=== PATIENT | female | born 1950 | race African-American/Black ===

== ENCOUNTER 2024-05-09 07:06 | Inpatient (IN) | payer OTHER ==
[~2024-05-09] VITALS: Ht 165.1 cm; Wt 44.4 kg
--- NOTE | 2024-05-09 07:24 | ECG ---
[facility] Test Date: 2024-05-09 Test Time: 07:13:26 Pat Name: FAITH BURTON Department: ER Room: 0220T Gender: F Commercial Real Estate Appraiser: CHRIS : 1950 Requested By: CEM GREEN Order Number: [id number] Reading MD: Geraldo Rao Measurements Intervals [place] Rate: 84 P: 80 OR: 162 QRS: 76 QRSD: 90 T: 66 QT: 377 QTc: 446 Interpretive Statements Sinus rhythm Minimal ST elevation, inferior leads Electronically Signed On 05-14-2024 16:06:57 PST by Geraldo Rao Please click the below link to view image of tracing.
[2024-05-09 07:44] VITALS: PULSE 88; O2SAT 98
--- NOTE | 2024-05-09 08:15 | ED.PDOC ---
History of Present Illness HPI Comments A 74 year old female brought in by EMS presents to the ED with a chief complaint of generalized body pain onset yesterday around 20:00. Daughter states the patient has Sickle Cell Anemia, does not see a Specialist and was seen in this ED about 1 week ago, was transferred to [place]. Patient is currently ex periencing generalized body pain as well as nausea, vomiting. Patient took Motrin, Theraflu and [place] but has not improved symptoms. No other symptoms or modifying factor present at this time. 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 Family History Family History: Unknown Social History Smoker: Non-Smoker Alcohol: Denies ETOH Use Drugs: Marijuana Lives In: Home Constitutional: denies: chills, diaphoresis, fatigue, fever, malaise, sweats, weakness, others EENTM: denies: blurred vision, double vision, ear bleeding, ear discharge, ear drainage, ear pain, ear ringing, eye pain, eye redness, hearing loss, mouth pain, mouth swelling, nasal discharge, nose bleeding, nose congestion, nose pain, photophobia, tearing, throat pain, throat swelling, voice changes, others Respiratory: denies: cough, hemoptysis, orthopnea, SOB at rest, shortness of breath, SOB with excertion, stridor, wheezing, others Cardiovascular: denies: chest pain, dizzy spells, diaphoresis, Dyspnea on exertion, edema, irregular heart beat, left arm pain, lightheadedness, palpitations, PND, syncope, others Gastrointestinal: reports: nausea, vomiting; denies: abdomen distended, abdominal pain, blood streaked bowels, constipated, diarrhea, dysphagia, difficulty swallowing, hematemesis, melena, poor appetite, poor fluid intake, rectal bleeding, rectal pain, others Genitourinary: denies: abnormal vagina bleeding, burning, dyspareunia, dysuria, flank pain, frequency, hematuria, incontinence, pain, , vagina discharge, urgency, others Neurological: denies: dizziness, fainting, headache, left sided numbness, left sided weakness, numbness, paresthesia, pre-existing deficit, right sided numbness, right sided weakness, seizure, speech problems, tingling, tremors, weakness, others Musculoskeletal: reports: others (generalized body pain); denies: back pain, gout, joint pain, joint swelling, muscle pain, muscle stiffness, neck pain Integumetry: denies: bruises, change in color, change in hair/nails, dryness, laceration, lesions, lumps, rash, wounds, others Allergic/Immunocompromised: denies: Difficulty Healing, Frequent Infections, Hives, Itching, others Hematologic/Lymphatic: denies: anemia, blood clots, easy bleeding, easy bruising, swollen glands, others Endocrine: denies: excessive hunger, excessive sweating, excessive thirst, excessive urination, flushing, intolerance to cold, intolerance to heat, unexplained weight gain, unexplained weight loss, others Psychiatric: denies: anxiety, bipolar disorder, depression, hopeless, panic disorder, schizophrenia, sleepless, suicidal, others All Other Systems: Reviewed and Negative Physical Exam General Appearance: Mild Distress, Normal, Other (uncomfortable) HEENT: Normal ENT Inspection, Pharynx Normal, TMs Normal Neck: Full Range of Motion, Non-Tender, Normal, Normal Inspection Respiratory: Chest Non-Tender, Lungs Clear, No Accessory Muscle Use, No Respiratory Distress, Normal Breath Sounds Cardiovascular: No Edema, No JVD, No Murmur, No Gallop, Normal Peripheral Pu lses, Regular Rate/Rhythm Breast Exam: Deferred Gastrointestinal: No Organomegaly, Non Tender, No Pulsatile Mass, Normal Bowel Sounds, Soft Genitalia: Deferred Pelvic: Deferred Rectal: Deferred Extremities: No calf tenderness, Normal capillary refill, Normal inspection, Normal range of motion, Non-tender, No pedal edema Musculoskeletal : Apperance: Normal Neurologic: Alert, historical records administrator II-XII nml as Tested, No Motor Deficits, Normal Affect, Normal Mood, No Sensory Deficits Cerebellar Function: Normal Reflexes: Normal Skin: Dry, Normal Color, Warm Lymphatic: No Adenopathy Was a procedure done? Was a procedure done?: No Differential Dx Considerations may include: Sickle cell crisis, acute chest, pneumonia X-Ray, Labs, Meds, VS Vital Signs Date Time Temp Pulse Resp B/P (MAP) Pulse Ox O2 Delivery O2 Flow Rate FiO2 05/09/24 08:54 87 16 128/56 05/09/24 08:24 90 18 128/56 05/09/24 08:00 88 16 128/56 (80) 100 05/09/24 07:44 88 18 147/87 (107) 98 05/09/24 07:44 88 98 Room Air* 0 21 05/09/24 07:38 98.8 84 22 155/76 (102) 98 05/09/24 07:13 84 Lab Test 05/09/24 10:03 05/09/24 08:31 05/09/24 07:13 Range/Units Troponin I High Sensitivity 35 *H 37 *H 35 *H </=34 ng/L White Blood Count 10.5 4.4-10.8 10^3/uL Red Blood Count 1.45 L 4.0-5.20 10^6/uL Hemoglobin 5.0 *L 12.2-16.2 g/dL Hematocrit 15.0 L 36.0-46.0 % Mean Corpuscular Volume 103.4 H 80.0-100.0 fL Mean Corpuscular Hemoglobin 34.1 H 28.0-32.0 pg Mean Corpuscular Hemoglobin Concent 33.0 32.0-36.0 g/dL Red Cell Distribution Width 17.2 H 11.8-14.3 % Platelet Count 129 L 140-450 10^3/uL Mean Platelet Volume 11.2 H 6.9-10.8 fL Neutrophils (%) (Auto) 37.0-80.0 % Lymphocytes (%) (Auto) 10.0-50.0 % Monocytes (%) (Auto) 0.0-12.0 % Basophils (%) (Auto) 0.0-2.0 % Neutrophils # (Auto) 1.6-8.6 10 ^3/uL Lymphocytes # (Auto) 0.4-5.4 10 ^3/uL Monocytes # (Auto) 0-1.3 10 ^3/uL Differential Total Cells Counted 100.0 100 Neutrophils % (Manual) 72 37.0-80.0 Band Neutrophils % (Manual) 0 Lymphocytes % (Manual) 21 10.0-50.0 Monocytes % (Manual) 6 0-12 Eosinophils % (Manual) 1 0-7 Basophils % (Manual) 0 0.0-2.0 Metamyelocytes % (manual) 0 Myelocytes % (Manual) 0 Promyelocytes % (Manual) 0 Blast Cells % (Manual) 0 Nucleated Red Blood Cells 5.0 % Reactive Lymphocytes 0 Platelet Estimate Decrea Large Platelets Few Anisocytosis (manual) Slight Macrocytosis Slight Ayala Cells Few Reticulocyte Count (auto) 11.22 H 0.5-1.5 % Sodium Level 131 L 136-145 mmol/L Potassium Level 4.0 3.5-5.1 mmol/L Chloride Level 102 98-107 mmol/L Carbon Dioxide Level 17 L 20-31 mmol/L Anion Gap 12 5-15 Blood Urea Nitrogen 26 H 9-23 mg/dL Creatinine 1.28 H 0.550-1.02 mg/dL Glomerular Filtration Rate Calc 44 >90 mL/min BUN/Creatinine Ratio 20.3 H 10.0-20.0 Serum Glucose 120 H 74-106 mg/dL Calcium Level 10.8 H 8.7-10.4 mg/dL Current Medications Medications (Trade) Dose Ordered Sig/Evelyn Route Start Time Stop Time Status Last Admin Sodium Chloride 1,000 ml @ 1,000 mls/hr Q1H ONCE IV 05/09/24 08:15 05/09/24 09:14 DC 05/09/24 08:22 Ondansetron HCl (Zofran) 4 mg ONCE ONCE IV 05/09/24 08:15 05/09/24 08:16 DC 05/09/24 08:23 Morphine Sulfate 4 mg ONCE ONCE IV 05/09/24 08:15 05/09/24 08:16 DC 05/09/24 08:24 Diphenhydramine HCl (Benadryl Injection) 25 mg ONCE ONCE IV 05/09/24 08:15 05/09/24 08:16 DC 05/09/24 08:[address] [address] Ph: [phone] DIAGNOSTIC IMAGING Diagnostic Imaging Report : [id number] Signed PATIENT: FAITH BURTON ACCT: [id number] UNIT: [id number] : 1950 LOC: ER ROOM / BED: / AGE / SEX: 74 / F ADM STATUS: REG ER SERVICE 8 ORDERING PHYSICIAN: CEM BLACK MD PROCEDURE(s): CXRP - CHEST PORTABLE REASON: chest pain, hx of sickle cell ORDER NUMBER(s): [id number], ACCESSION NUMBER(s): [id number] XY CHEST PORTABLE, HISTORY: chest pain, hx of sickle cell COMPARISON: None None TECHNICAL DATA: 1 view of the chest was obtained. FINDINGS: Lines and tubes: None Cardiomediastinal silhouette: normal Pulmonary vasculature: prominent Lung expansion: normal Lung airspace: normal Lung interstitium: normal Pleura: normal Pneumothorax: no Bones: Unremarkable Other: no IMPRESSION: Mild pulmonary congestion. ATED BY: ABIODUN SOSA MD DICTATED DATE/TIME: 05/09/24840 SIGNED BY: ABIODUN SOSA MD SIGNED DATE/TIME: 05/09/24840 CC: Time of 1ST Reevaluation: 08:34 Reevaluation 1ST: Unchanged Patient Education/Counseling: Diagnosis, Treatment, Prognosis Family Education/Counseling: Diagnosis, Treatment, Prognosis Additional Information HI DATA VOL/COMPLEXITY:>2 Ordered Test- LAB, PHA, XY, EKG Reviewed Results: Reticulocyte count, BMP, CBC, TROP, TROP, TROP, Manual DIfferential Independent Hx- yes Interpreted Results-(XY/EKG) Discuss Tx/Results- medical personnel, pt, daughter Departure 1 Departure Time of Disposition: 11:03 (Patient likely with sickle cell crisis given the symptomatic anemia however patient is making a good retake count. We will transfuse patient give analgesia, fluids, oxygen and admit patient for further workup) Impression: Primary Impression: Symptomatic anemia Additional Impression: Sickle cell crisis Disposition: ADMITTED INPATIENT Admit to: Med Surg Condition: Serious Critical Care Note Critical Care Time?: Yes Critical care comment: Acute Severe chest pain Authorized and Performed by: Cem Black MD Total critical care time: Approximately 31 minutes Due to a high probability of clinically significant, life threatening deterioration, the patient required my highest level of preparedness to intervene emergently and I personally spent this critical care time directly and personally managing the patient. This critical care time included obtaining a history; examining the patient; pulse oximetry; ordering and review of studies; arranging urgent treatment with development of a management plan; evaluation of patient's response to treatment; frequent reassessment; and, discussions with other providers. This critical care time was performed to assess and manage the high probability of imminent, life-threatening deterioration that could result in multi-organ failure. It was exclusive of separately billable procedures and treating other patients and teaching time. Please see my other sections and the rest of the note for further information on patient assessment and treatment. Stability Stability form required: No I personally scribed for CEM BLACK MD ([email or web address]) on 05/09/24 at 08:15. Electronically submitted by Radha Betancourt ([email or web address]). I personally scribed for CEM BLACK MD ([email or web address]) on 05/09/24 at 09:09. Electronically submitted by Radha Betancourt ([email or web address]). I personally scribed for CEM BLACK MD ([email or web address]) on 05/09/24 at 10:40. Electronically submitted by Radha Betancourt ([email or web address]). CEM BLACK MD May 09, 2024 08:15
[2024-05-09] MEDS: SODIUM CHLORIDE 0.9% 1,000 ML IV ONE (08:22)
[2024-05-09] MEDS: diphenhdrAMINE HCL 50 MG/1 ML VL IV ONE (08:23)
[2024-05-09] MEDS: ONDANSETRON HCL 4 MG/2 ML VIAL IV ONE (08:23)
[2024-05-09 08:24] LABS: Red Blood Cells 1.45 10^6/uL (4.0-5.20)
[2024-05-09] MEDS: MORPHINE SULFATE 4 MG/ML SYR/VIAL IV ONE ×2 (08:24→11:03)
[2024-05-09 08:26] LABS: Mean Corpuscular Hemoglobin 34.1 pg (28.0-32.0); Mean Corpuscular Volume 103.4 fL (80.0-100.0); Platelet Count (auto) 129 10^3/uL (140-450); Red Cell Distribution Width 17.2 % (11.8-14.3); White Blood Cell 10.5 10^3/uL (4.4-10.8)
[2024-05-09 08:35] LABS: Chloride 102 mmol/L (98-107)
[2024-05-09 08:36] LABS: Anion Gap 12 (5-15)
[2024-05-09 08:37] LABS: Calcium 10.8 mg/dL (8.7-10.4); Carbon Dioxide 17 mmol/L (20-31); Sodium 131 mmol/L (136-145)
[2024-05-09 08:40] LABS: Band Neutrophils % (manual) 0; Basophils % (manual) 0 (0.0-2.0); Blast Cells 0; Metamyelocytes % 0; Myelocytes % 0; Promyelocytes % 0; Reactive Lymphocytes 0
[2024-05-09 08:41] LABS: BUN/Creatinine Ratio 20.3 (10.0-20.0)
[2024-05-09 08:42] LABS: Blood Urea Nitrogen 26 mg/dL (9-23); Glucose 120 mg/dL (74-106)
--- NOTE | 2024-05-09 08:44 | DVH ---
XY CHEST PORTABLE, HISTORY: chest pain, hx of sickle cell COMPARISON: None None TECHNICAL DATA: 1 view of the chest was obtained. FINDINGS: Lines and tubes: None Cardiomediastinal silhouette: normal Pulmonary vasculature: prominent Lung expansion: normal Lung airspace: normal Lung interstitium: normal Pleura: normal Pneumothorax: no Bones: Unremarkable Other: no IMPRESSION: Mild pulmonary congestion.
[2024-05-09 09:05] LABS: Eosinophils % (manual) 1 (0-7); Lymphocytes % (manual) 21 (10.0-50.0); Monocytes % (manual) 6 (0-12)
[2024-05-09 09:06] LABS: Large Platelets FEW; Platelet Estimate Decrea
[2024-05-09 09:07] LABS: Anisocytosis Slight
[2024-05-09 09:08] LABS: Macrocytosis Slight
[2024-05-09] MEDS: hydroxyUREA 500 MG CAP PO ONE (13:00)
[2024-05-09] MEDS: FOLIC ACID 1 MG in D5W 5% 50 ML INJ ONE (13:00)
[2024-05-09] MEDS ORDERED: ONDANSETRON HCL 4 MG/2 ML VIAL IV PRN (13:00)
--- NOTE | 2024-05-09 13:19 | DVHHP2 ---
History of Present Illness History of Present Illness A 74 year old female with past medical history of sickle cell anemia, gallstones brought in by EMS presents to the ED with a chief complaint of generalized body pain onset yesterday around 20:00. Daughter states the patient has Sickle Cell Anemia, does not see a Specialist and was seen in this ED about 1 week ago, was transferred to [facility] where , per daughter, she apparently received on diversion from cholecystic duct to small-bowel and her gallbladder was inoperable (we will need records to confirm). Patient is currently experien cing generalized body pain as well as nausea, vomiting. She is feeling mild shortness of breath and diffuse chest pain with inspiration, pleuritic pains. Patient took Motrin, Theraflu and [place] but has not improved symptoms. No other symptoms or modifying factor present at this time. Review of Systems Review of Systems Has HPI Allergies: Coded Allergies: Penicillins (Verified Allergy, Unknown, 05/09/24) Sulfa Antibiotics (Verified Allergy, Unknown, 05/09/24) Exam Vital Signs Vital Signs Date Time Temp Pulse Resp B/P (MAP) Pulse Ox O2 Delivery O2 Flow Rate FiO2 05/09/24 11:33 88 16 170/85 05/09/24 10:00 99 05/09/24 07:44 Room Air* 0 21 05/09/24 07:38 98.8 Exam GEN: Healthy appearing, well-developed, under mild distress HEENT: NC/AT; MMM. Scleral icterus CV: RRR, no m/r/g. LUNGS: Bibasilar rales ABD: Soft, NT/ND, NBS, no masses or organomegaly. Nor organomegaly EXT: skin Warm, well perfused. no rashes. No clubbing, cyanosis, or edema. Skin is mildly jaundiced NEURO: Ambulating with no limitations. No focal deficits. Labs/Xrays Labs Test 05/09/24 10:03 05/09/24 07:13 Range/Units Troponin I High Sensitivity 35 *H </=34 ng/L White Blood Count 10.5 4.4-10.8 10^3/uL Red Blood Count 1.45 L 4.0-5.20 10^6/uL Hemoglobin 5.0 *L 12.2-16.2 g/dL Hematocrit 15.0 L 36.0-46.0 % Mean Corpuscular Volume 103.4 H 80.0-100.0 fL Mean Corpuscular Hemoglobin 34.1 H 28.0-32.0 pg Mean Corpuscular Hemoglobin Concent 33.0 32.0-36.0 g/dL Red Cell Distribution Width 17.2 H 11.8-14.3 % Platelet Count 129 L 140-450 10^3/uL Mean Platelet Volume 11.2 H 6.9-10.8 fL Neutrophils (%) (Auto) 37.0-80.0 % Lymphocytes (%) (Auto) 10.0-50.0 % Monocytes (%) (Auto) 0.0-12.0 % Basophils (%) (Auto) 0.0-2.0 % Neutrophils # (Auto) 1.6-8.6 10 ^3/uL Lymphocytes # (Auto) 0.4-5.4 10 ^3/uL Monocytes # (Auto) 0-1.3 10 ^3/uL Differential Total Cells Counted 100.0 100 Neutrophils % (Manual) 72 37.0-80.0 Band Neutrophils % (Manual) 0 Lymphocytes % (Manual) 21 10.0-50.0 Monocytes % (Manual) 6 0-12 Eosinophils % (Manual) 1 0-7 Basophils % (Manual) 0 0.0-2.0 Metamyelocytes % (manual) 0 Myelocytes % (Manual) 0 Promyelocytes % (Manual) 0 Blast Cells % (Manual) 0 Nucleated Red Blood Cells 5.0 % Reactive Lymphocytes 0 Platelet Estimate Decrea Large Platelets Few Anisocytosis (manual) Slight Macrocytosis Slight Ayala Cells Few Reticulocyte Count (auto) 11.22 H 0.5-1.5 % Sodium Level 131 L 136-145 mmol/L Potassium Level 4.0 3.5-5.1 mmol/L Chloride Level 102 98-107 mmol/L Carbon Dioxide Level 17 L 20-31 mmol/L Anion Gap 12 5-15 Blood Urea Nitrogen 26 H 9-23 mg/dL Creatinine 1.28 H 0.550-1.02 mg/dL Glomerular Filtration Rate Calc 44 >90 mL/min BUN/Creatinine Ratio 20.3 H 10.0-20.0 Serum Glucose 120 H 74-106 mg/dL Calcium Level 10.8 H 8.7-10.4 mg/dL Assessment/Plan Assessment/Plan #Sickle cell anemia #Jaundice #Hypoxemia/acute hypoxic respiratory failure #Generalized pains #Pleuritic chest pain - presenting with diffuse pains NC this onset -Hemoglobin 5.0 on admit, retic count increased (reticulocyte 11.2) -On exam patient is jaundiced, tachycardia, tachypnea, mild shortness of breath, skin is jaundiced, nor organomegaly IV fluids Pain control Transfuse PRBC with hemoglobin goal more than 7 hydroxyurea, folic acid holding off antibiotics, low threshold to start antibiotics given there is some concern of chest pain related to sickle chest syndrome needs oracle distribution consultant. will consult. #Troponinemia likely type 2 NSTEMI from anemia Diet regular DVT prophylaxis Lovenox GI prophylaxis tolerating diet Med tele - given there was Troponinemia Plan discussed with: Patient My Orders Orders - BRODERICK HONEYCUTT MD Procedure Category Date Status Time Admit ADMIT 05/09/24 Transmitted 12:47 Code Status CODE 05/09/24 Transmitted 12:47 Hydrocodone-Acet PHA 05/09/24 Logged 5/325mg Tab ([place] 13:00 Ondansetron Hcl PHA 05/09/24 Logged (Zofran) 13:00 Enoxaparin Sodium PHA 05/10/24 Logged (Lovenox) 10:00 Complete Blood Count LAB 05/10/24 Verified 04:00 Comprehensive LAB 05/10/24 Verified Metabolic Panel 04:00 Acetaminophen Tablet PHA 05/09/24 Logged (Tylenol Tablet) 13:00 Bedrest With Bathroom PHYLLIS 05/09/24 In Process Privileg 12:47 Morphine Sulfate PHA 05/09/24 Logged Injection 13:00 Lactate Dehydrogenase LAB 05/09/24 Logged 12:47 Lactated Ringer's PHA 05/09/24 Logged 13:00 Folic Acid Ivpb PHA 05/09/24 Transmitted 13:00 Folic Acid Tablet PHA 05/10/24 Logged 10:00 Hydroxyurea Capsule PHA 05/09/24 Logged (Hydrea Capsule) 13:00 Hydroxyurea Capsule PHA 05/10/24 Logged (Hydrea Capsule) 10:00 Date of Service: May 09, 2024 Billing Provider: BRODERICK HONEYCUTT MD Common Visit Codes: [id number] INP/OBS CARE (HIGH) BRODERICK HONEYCUTT MD May 09, 2024 13:19
[2024-05-09] MEDS: LACTATED RINGER'S 1,000 ML IV SCH (13:22)
[2024-05-09] MEDS: MORPHINE SULFATE INJ 2 MG/ml SYRG IV PRN (14:47)
[2024-05-09] MEDS: HYDROcodone-ACET 5/325MG TAB PO PRN (15:41)
[2024-05-09 16:40] VITALS: BP 115/56; PULSE 103; RESP 15; TEMP 99.5; O2SAT 96
[2024-05-09 17:00] VITALS: BP 115/56; PULSE 103; RESP 18; TEMP 99.5; O2SAT 96
[2024-05-09] MEDS: KETOROLAC TROMETH 30 MG/ML 1ML VIAL IV ONE (18:02)
[2024-05-09] MEDS: HYDROmorphone HCL 2 MG/ML VL/or syr IV PRN (18:49)
[2024-05-09 20:00] VITALS: PULSE 93
[2024-05-09 21:00] VITALS: BP 124/61; PULSE 105; RESP 14; TEMP 98.3; O2SAT 98
[2024-05-09 23:17] LABS: Hematocrit 13.3 % (36.0-46.0)
[2024-05-09 23:23] LABS: Hemoglobin 4.4 g/dL (12.2-16.2)
[2024-05-10] VITALS (18 sets, daily range): BP systolic 94–130; BP diastolic 37–75; PULSE 64–127; RESP 14–20; TEMP 97.7–100.2; O2SAT 81–99
[2024-05-10 06:51] LABS: Basophils # (auto) 0.1 10 ^3/uL (0-0.2); Eosinophils # (auto) 0 10 ^3/uL (0-0.8); Eosinophils % (auto) 0.2 % (0.0-7.0)
[2024-05-10 06:52] LABS: Basophils % (auto) 1.2 % (0.0-2.0); Lymphocytes # (auto) 1.7 10 ^3/uL (0.4-5.4); Lymphocytes % (auto) 14.4 % (10.0-50.0); Mean Corpuscular Hemoglobin 34.1 pg (28.0-32.0); Mean Corpuscular Hgb Conc. 33.7 g/dL (32.0-36.0); Monocytes % (auto) 8.4 % (0.0-12.0); Neutrophils # (auto) 8.9 10 ^3/uL (1.6-8.6); Neutrophils % (auto) 75.8 % (37.0-80.0); Platelet Count (auto) 96 10^3/uL (140-450); Red Blood Cells 1.28 10^6/uL (4.0-5.20); Red Cell Distribution Width 17.4 % (11.8-14.3); White Blood Cell 11.8 10^3/uL (4.4-10.8)
[2024-05-10 07:12] LABS: Anion Gap 9 (5-15); BUN/Creatinine Ratio 20.8 (10.0-20.0); Blood Urea Nitrogen 22 mg/dL (9-23); Calcium 10.1 mg/dL (8.7-10.4); Glucose 90 mg/dL (74-106); Potassium 4.3 mmol/L (3.5-5.1)
[2024-05-10 07:13] LABS: Total Protein 7.1 g/dL (5.7-8.2)
[2024-05-10 07:16] LABS: Alanine Aminotransferase 49 U/L (7-40); Albumin 3.2 g/dL (3.2-4.8); Alkaline Phosphatase 149 U/L (46-116); Aspartate Aminotransferase 229 U/L (13-40); Bilirubin, Total 3.9 mg/dL (0.2-1.0); Carbon Dioxide 20 mmol/L (20-31); Chloride 107 mmol/L (98-107); Sodium 136 mmol/L (136-145)
[2024-05-10 08:17] LABS: Nucleated Red Blood Cells % 13.1 %
[2024-05-10 08:20] LABS: Hemoglobin 4.4 g/dL (12.2-16.2)
[2024-05-10] MEDS: FOLIC ACID 1 MG TAB PO SCH (09:51)
[2024-05-10] MEDS: ENOXAPARIN SOD 30 MG/0.3 ML SYRINGE SC SCH (10:00)
[2024-05-10] MEDS: ACETAMINOPHEN 325 MG TAB PO PRN (11:17)
[2024-05-10] MEDS: hydroxyUREA 500 MG CAP PO SCH (11:25)
--- NOTE | 2024-05-10 15:05 | DVHPN2 ---
Reviewed: Care Plan, H&P, Labs, Medications, Previous Orders, Radiology Changes from previous H/P or p: No Changes Objective Vitals Vital Signs Date Time Temp Pulse Resp B/P (MAP) Pulse Ox O2 Delivery O2 Flow Rate FiO2 05/10/24 14:43 107 16 109/58 05/10/24 14:00 99.3 99.3 05/10/24 13:00 81 05/10/24 08:00 Nasal Cannula* 3 32 Intake/Output Intake and Output 05/10/24 07:00 Intake Total 325 ml Balance 325 ml Intake Oral 325 ml # Voids 2 Medications Current Medications Medications Dose Ordered Sig/Evelyn Route Start Time Stop Time Status Last Admin Dose Admin Ondansetron HCl 4 mg Q4HP PRN IV 05/09/24 13:00 Enoxaparin Sodium 30 mg DAILY SC 05/10/24 10:00 Acetaminophen 650 mg Q6HP PRN PO 05/09/24 13:00 05/10/24 11:17 650 MG Folic Acid 1 mg DAILY PO 05/10/24 10:00 05/10/24 09:51 1 MG Hydroxyurea 500 mg DAILY PO 05/10/24 10:00 05/10/24 11:25 500 MG Acetaminophen/ Hydrocodone Bitart 1 tab Q4HP PRN PO 05/09/24 17:30 Hydromorphone HCl 0.5 mg Q3HPRN PRN IV 05/09/24 17:30 05/10/24 14:13 0.5 MG Laboratory Results Laboratory Tests 05/10/24 05:52 Chemistry Test 05/10/24 05:52 Albumin 3.2 g/dL (3.2-4.8) Calcium Level 10.1 mg/dL (8.7-10.4) Total Protein 7.1 g/dL (5.7-8.2) LFT Test 05/10/24 05:52 Alanine Aminotransferase (ALT) 49 U/L (7-40) H Alkaline Phosphatase 149 U/L (46-116) H Aspartate Amino Transferase (AST) 229 U/L (13-40) H Total Bilirubin 3.9 mg/dL (0.2-1.0) H Microbiology Microbiology Date/Time Source Procedure Growth Status 05/09/24 17:44 Nose MRSA Screen - Final Complete Labs and/or images reviewed: Labs reviewed by me, Image(s) reviewed by me Assessment/Plan Assessment/Plan Acute symptomatic anemia hemoglobin 4.4 transfuse 3 units of RBC Sickle cell crisis hydroxyurea History of sickle cell anemia Jaundice Acute Dehydration: IV fluids Acute hypoxic respiratory failure: Oxygen by nasal cannula Acute generalized pains: [place] Dilaudid Pleuritic chest pain Time spent 40 minutes Plan discussed with: Patient Date of Service: May 10, 2024 Billing Provider: OCRY THOMAS MD Common Visit Codes: [id number] INP/OBS CARE(HIGH) CORY THOMAS MD May 10, 2024 15:05
[2024-05-11] VITALS (13 sets, daily range): BP systolic 124–150; BP diastolic 61–85; PULSE 63–107; RESP 16–20; TEMP 98–99.2; O2SAT 84–94
[2024-05-11] MEDS: LORazepam 2MG/ML-1ML VIAL IV ONE (05:08)
[2024-05-11 06:56] LABS: Eosinophils # (auto) 0 10 ^3/uL (0-0.8)
[2024-05-11 06:59] LABS: Basophils # (auto) 0.1 10 ^3/uL (0-0.2); Basophils % (auto) 0.7 % (0.0-2.0); Eosinophils % (auto) 0.4 % (0.0-7.0); Hematocrit 20.1 % (36.0-46.0); Lymphocytes # (auto) 1.4 10 ^3/uL (0.4-5.4); Lymphocytes % (auto) 14.4 % (10.0-50.0); Mean Corpuscular Hemoglobin 30.6 pg (28.0-32.0); Mean Corpuscular Hgb Conc. 34.1 g/dL (32.0-36.0); Mean Corpuscular Volume 89.7 fL (80.0-100.0); Monocytes # (auto) 0.8 10 ^3/uL (0-1.3); Neutrophils # (auto) 7.3 10 ^3/uL (1.6-8.6); Neutrophils % (auto) 76.5 % (37.0-80.0); Nucleated Red Blood Cells % 32.1 %; Platelet Count (auto) 97 10^3/uL (140-450); Red Blood Cells 2.24 10^6/uL (4.0-5.20); Red Cell Distribution Width 19.5 % (11.8-14.3); White Blood Cell 9.5 10^3/uL (4.4-10.8)
[2024-05-11 07:21] LABS: Hemoglobin 6.8 g/dL (12.2-16.2)
--- NOTE | 2024-05-11 08:35 | DVHPN2 ---
Reviewed: Care Plan, H&P, Labs, Medications, Previous Orders, Radiology Changes from previous H/P or p: No Changes Objective Vitals Vital Signs Date Time Temp Pulse Resp B/P (MAP) Pulse Ox O2 Delivery O2 Flow Rate FiO2 05/11/24 08:00 Nasal Cannula* 3 32 05/11/24 05:00 98.1 91 18 143/75 (97) 93 98.1 Intake/Output Intake and Output 05/11/24 07:00 Intake Total 2440 ml Output Total 500 ml Balance 1940 ml Intake Oral 1690 ml Blood Product 500 ml Other 250 ml Output Urine Total 500 ml # Voids 1 Medications Current Medications Medications Dose Ordered Sig/Evelyn Route Start Time Stop Time Status Last Admin Dose Admin Ondansetron HCl 4 mg Q4HP PRN IV 05/09/24 13:00 Enoxaparin Sodium 30 mg DAILY SC 05/10/24 10:00 Acetaminophen 650 mg Q6HP PRN PO 05/09/24 13:00 05/10/24 11:17 650 MG Folic Acid 1 mg DAILY PO 05/10/24 10:00 05/10/24 09:51 1 MG Hydroxyurea 500 mg DAILY PO 05/10/24 10:00 05/10/24 11:25 500 MG Acetaminophen/ Hydrocodone Bitart 1 tab Q4HP PRN PO 05/09/24 17:30 Hydromorphone HCl 0.5 mg Q3HPRN PRN IV 05/09/24 17:30 05/10/24 20:50 0.5 MG Laboratory Results Laboratory Tests 05/10/24 05:52 05/11/24 05:42 Microbiology Microbiology Date/Time Source Procedure Growth Status 05/09/24 17:44 Nose MRSA Screen - Final Complete Labs and/or images reviewed: Labs reviewed by me, Image(s) reviewed by me Assessment/Plan Assessment/Plan Acute symptomatic anemia hemoglobin 4.4 improved to 6.8 after 2 units RBC transfusion, patient does not want anymore blood transfusion and wants to go home Sickle cell crisis hydroxyurea History of sickle cell anemia Jaundice Acute Dehydration: IV fluids Acute hypoxic respiratory failure: Oxygen by nasal cannula Acute generalized pains: [place] Dilaudid Pleuritic chest pain Time spent 40 minutes Plan discussed with: Patient Date of Service: May 11, 2024 Billing Provider: CORY THOMAS MD Common Visit Codes: [id number] INP/OBS CARE(HIGH) CORY THOMAS MD May 11, 2024 08:35
--- NOTE | 2024-05-11 08:39 | DVHDS2 ---
Discharge Summary Date of Admission May 09, 2024 at 12:47 Date of Discharge: May 11, 2024 Admitting Diagnosis Generalized weakness Wounds: None Labs/Diagnostic Data: Laboratory Results Test 05/11/24 05:42 05/10/24 05:52 05/09/24 10:03 05/09/24 07:13 White Blood Count 9.5 10^3/uL (4.4-10.8) Red Blood Count 2.24 10^6/uL (4.0-5.20) Hemoglobin 6.8 g/dL (12.2-16.2) Hematocrit 20.1 % (36.0-46.0) Mean Corpuscular Volume 89.7 fL (80.0-100.0) Mean Corpuscular Hemoglobin 30.6 pg (28.0-32.0) Mean Corpuscular Hemoglobin Concent 34.1 g/dL (32.0-36.0) Red Cell Distribution Width 19.5 % (11.8-14.3) Platelet Count 97 10^3/uL (140-450) Mean Platelet Volume 11.0 fL (6.9-10.8) Neutrophils (%) (Auto) 76.5 % (37.0-80.0) Lymphocytes (%) (Auto) 14.4 % (10.0-50.0) Monocytes (%) (Auto) 8.0 % (0.0-12.0) Eosinophils (%) (Auto) 0.4 % (0.0-7.0) Basophils (%) (Auto) 0.7 % (0.0-2.0) Neutrophils # (Auto) 7.3 10 ^3/uL (1.6-8.6) Lymphocytes # (Auto) 1.4 10 ^3/uL (0.4-5.4) Monocytes # (Auto) 0.8 10 ^3/uL (0-1.3) Eosinophils # (Auto) 0 10 ^3/uL (0-0.8) Basophils # (Auto) 0.1 10 ^3/uL (0-0.2) Nucleated Red Blood Cells 32.1 % Sodium Level 136 mmol/L (136-145) Potassium Level 4.3 mmol/L (3.5-5.1) Chloride Level 107 mmol/L (98-107) Carbon Dioxide Level 20 mmol/L (20-31) Anion Gap 9 (5-15) Blood Urea Nitrogen 22 mg/dL (9-23) Creatinine 1.06 mg/dL (0.550-1.02) Glomerular Filtration Rate Calc 55 mL/min (>90) BUN/Creatinine Ratio 20.8 (10.0-20.0) Serum Glucose 90 mg/dL (74-106) Calcium Level 10.1 mg/dL (8.7-10.4) Total Bilirubin 3.9 mg/dL (0.2-1.0) Aspartate Amino Transferase (AST) 229 U/L (13-40) Alanine Aminotransferase (ALT) 49 U/L (7-40) Alkaline Phosphatase 149 U/L (46-116) Total Protein 7.1 g/dL (5.7-8.2) Albumin 3.2 g/dL (3.2-4.8) Lactate Dehydrogenase 1416 U/L (120-246) Troponin I High Sensitivity 35 ng/L (</=34) Differential Total Cells Counted 100.0 (100) Neutrophils % (Manual) 72 (37.0-80.0) Band Neutrophils % (Manual) 0 Lymphocytes % (Manual) 21 (10.0-50.0) Monocytes % (Manual) 6 (0-12) Eosinophils % (Manual) 1 (0-7) Basophils % (Manual) 0 (0.0-2.0) Metamyelocytes % (manual) 0 Myelocytes % (Manual) 0 Promyelocytes % (Manual) 0 Blast Cells % (Manual) 0 Reactive Lymphocytes 0 Platelet Estimate Decrea Large Platelets Few Anisocytosis (manual) Slight Macrocytosis Slight [place] Cells Few Reticulocyte Count (auto) 11.22 % (0.5-1.5) Other Laboratory Tests 05/11/24 05:42 05/10/24 05:52 Brief Hx & Hospital Course: 74-year-old female with a 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 I advised that she needs one more unit of RBC transfusion but patient refused and wants to go home. Discharged home. Consults/Reason for consult None Operations or Procedures 2 units RBC transfusion Condition at Discharge: Fair Final Diagnosis/Problems List Acute symptomatic anemia hemoglobin 4.4 improved to 6.8 after 2 units RBC transfusion, patient does not want anymore blood transfusion and wants to go home Sickle cell crisis hydroxyurea History of sickle cell anemia Jaundice Acute Dehydration: IV fluids Acute hypoxic respiratory failure: Oxygen by nasal cannula Acute generalized pains: [place] Dilaudid Pleuritic chest pain Discharge Disposition: Home Discharge Instruct/Medications Diet: Cardiac 2g Na,low cholest Activity: Light activity Follow Up/Referral: Resume all your previous home medications Follow up with your primary doctor Medications: none 36 (Time taken for discharge summary 36 minutes) Discharge Statement: "Patient was advised to return to the ER or call 911 if any headaches, dizziness, shortness of breath, chest pain, abdominal pain, bleeding, fevers, or worsening of medical condition. Patient was counseled about treatment plan, medications, possible side effects, patientverbalized understanding. All questions were answered to the best of my ability. This discharge took greater then 30 minutes in planning, reviewing documentation, counseling the patient, and discussing with other team members." ASSESSMENT ASSESSMENT Hospital Course Uneventful Assessment Acute symptomatic anemia hemoglobin 4.4 improved to 6.8 after 2 units RBC transfusion, patient does not want anymore blood transfusion and wants to go home Sickle cell crisis hydroxyurea History of sickle cell anemia Jaundice Acute Dehydration: IV fluids Acute hypoxic respiratory failure: Oxygen by nasal cannula Acute generalized pains: [place] Dilaudid Pleuritic chest pain Date of Service: May 11, 2024 Billing Provider: CORY THOMAS MD Common Visit Codes: 77095-TYV/OBS DISCH DAY >30min CORY THOMAS MD May 11, 2024 08:39
[2024-05-11 18:04] LABS: Basophils # (auto) 0 10 ^3/uL (0-0.2); Basophils % (auto) 0.3 % (0.0-2.0); Eosinophils # (auto) 0.1 10 ^3/uL (0-0.8); Eosinophils % (auto) 0.7 % (0.0-7.0); Hematocrit 25.5 % (36.0-46.0); Hemoglobin 8.5 g/dL (12.2-16.2); Lymphocytes # (auto) 1.4 10 ^3/uL (0.4-5.4); Lymphocytes % (auto) 17.6 % (10.0-50.0); Mean Corpuscular Hemoglobin 29.4 pg (28.0-32.0); Mean Corpuscular Hgb Conc. 33.5 g/dL (32.0-36.0); Mean Corpuscular Volume 87.7 fL (80.0-100.0); Monocytes # (auto) 0.7 10 ^3/uL (0-1.3); Monocytes % (auto) 8.6 % (0.0-12.0); Neutrophils # (auto) 5.6 10 ^3/uL (1.6-8.6); Neutrophils % (auto) 72.8 % (37.0-80.0); Nucleated Red Blood Cells % 65.4 %; Platelet Count (auto) 84 10^3/uL (140-450); Red Cell Distribution Width 19.4 % (11.8-14.3); White Blood Cell 7.7 10^3/uL (4.4-10.8)
[2024-05-11 19:46] LABS: Base Excess -2.9 mmol/L (-2.0-3.0)
[2024-05-12] VITALS (8 sets, daily range): BP systolic 129–149; BP diastolic 70–85; PULSE 85–123; RESP 16–20; TEMP 97.9–98.9; O2SAT 92–97
[2024-05-12 18:07] LABS: Hematocrit 24.5 % (36.0-46.0); Hemoglobin 8.3 g/dL (12.2-16.2); Mean Corpuscular Hemoglobin 29.9 pg (28.0-32.0); Mean Corpuscular Hgb Conc. 33.9 g/dL (32.0-36.0); Mean Corpuscular Volume 88.3 fL (80.0-100.0); Platelet Count (auto) 94 10^3/uL (140-450); Red Blood Cells 2.77 10^6/uL (4.0-5.20); Red Cell Distribution Width 19.8 % (11.8-14.3); White Blood Cell 6.5 10^3/uL (4.4-10.8)
[2024-05-12 18:08] LABS: Band Neutrophils % (manual) 0; Basophils % (manual) 0 (0.0-2.0); Blast Cells 0; Metamyelocytes % 0; Myelocytes % 0; Promyelocytes % 0; Reactive Lymphocytes 0
[2024-05-12 20:29] LABS: Eosinophils % (manual) 1 (0-7); Lymphocytes % (manual) 34 (10.0-50.0); Monocytes % (manual) 6 (0-12)
[2024-05-12 20:30] LABS: Anisocytosis Moderate; Hypochromia Slight; Platelet Estimate Decreased
[2024-05-12 20:31] LABS: Large Platelets FEW; Macrocytosis Slight; Polychromasia Slight; Sickle Cells FEW; Target Cell FEW
[2024-05-13 01:00] VITALS: BP 143/73; PULSE 88; RESP 20; TEMP 98.3; O2SAT 98
[2024-05-13] MEDS: HYDROcodone-ACET 10/325MG TAB PO PRN (02:14)
[2024-05-13 05:00] VITALS: BP 106/62; PULSE 75; RESP 17; TEMP 98; O2SAT 97
[2024-05-13 08:00] VITALS: PULSE 63
[2024-05-13 08:45] VITALS: BP 122/69; PULSE 80; RESP 19; TEMP 97.3; O2SAT 96
[2024-05-13 13:00] VITALS: BP 121/68; PULSE 76; RESP 17; TEMP 98.3; O2SAT 99
== END 2024-05-13 16:00 | disposition home or self-care (01) | DRG 811 ==
LOC: ER 07:06 → EDSEX 07:06 → EDBD 07:06 → TELE 12:47 → TELE-CENTR 16:37
PROVIDERS: ADMIT Student in an Organized Health Care Education/Training Program; ATTEND Student in an Organized Health Care Education/Training Program
PROC: 30233N1 Transfusion of Nonautologous Red Blood Cells into Peripheral Vein, Percutaneous Approach (ICD-10-PCS; principal; 2024-05-10)
DX: D57.00 Hb-SS disease with crisis, unspecified (principal); J96.01 Acute respiratory failure with hypoxia; R17 Unspecified jaundice; K80.20 Calculus of gallbladder without cholecystitis without obstruction; E86.0 Dehydration; Z88.0 Allergy status to penicillin; Z88.2 Allergy status to sulfonamides; R07.89 Other chest pain
CPT/HCPCS: 36415; 36600; 80053; 82805; 85007; 85025; 85027; 86850; 86860; 86870; 86880; 86900; 86905; 86906; 86922; 86970; 96365; 96375; 99291; G0378